=== PATIENT | female | born 1945 | race Caucasian/White ===

== ENCOUNTER → 2017-02-07 | Outpatient (CLI) | payer OTHER ==
[2014-10-31 16:30] VITALS: BP 117/65
[~2017-02-07] MED LIST: ASPI-482 PO; GABA-586 PO; HYDR12.58 PO; NAPR500T3 PO; OMEP40CA5 PO; SENN1TAB70 PO; SIMV20TA3 PO; black cohosh PO
== END | disposition home or self-care (01) ==
LOC: EKG 10:10
PROVIDERS: ATTEND Physician Assistant
DX: R00.1 Bradycardia, unspecified (principal); R42 Dizziness and giddiness
CPT/HCPCS: 93225

== ENCOUNTER → 2017-10-17 | Outpatient (CLI) | payer OTHER | END | disposition home or self-care (01) | LOC: KCIC 14:53 | DX: R91.8 Other nonspecific abnormal finding of lung field (principal); R06.02 Shortness of breath | CPT/HCPCS: 71046 ==

== ENCOUNTER → 2017-11-14 | Outpatient (CLI) | payer OTHER | END | disposition home or self-care (01) | LOC: KCIC US 14:37 | DX: I65.22 Occlusion and stenosis of left carotid artery (principal) | CPT/HCPCS: 93880 ==

== ENCOUNTER → 2017-11-23 | Outpatient (CLI) | payer OTHER ==
[2017-11-23 13:53] LABS: POTASSIUM 3.8 mmol/L (3.5-5.1)
== END | disposition home or self-care (01) ==
LOC: SPEC 13:36
DX: M62.81 Muscle weakness (generalized) (principal); M62.838 Other muscle spasm
CPT/HCPCS: 36415; 84132

== ENCOUNTER → 2018-04-04 | Outpatient (CLI) | payer OTHER ==
[2014-10-31 16:30] VITALS: BP 117/65
[~2018-04-04] MED LIST changes: +NAPR-514 PO; -NAPR500T3 PO
--- NOTE | 2018-04-04 17:23 | KCIC ---
EXAM: AP, lateral, lumbosacral spot and bilateral oblique views of the lumbar spine DATE: 04/04/2018 12:00 AM INDICATION: Low back pain after lifting boxes. Hip pain for 3 months COMPARISON: No Prior FINDINGS: Transitional lumbar anatomy with small ribs are seen at L1. There is 4 mm anterolisthesis of L4 on L5. Mild L4-5 intervertebral disc height loss. Otherwise intervertebral disc heights are grossly preserved. On the oblique views, no definite pars defects are seen. Advanced L4-5 and L5-S1 facet degenerative change. No evidence for acute fracture. Vertebral body height heights are preserved. IMPRESSION: 1. Transitional anatomy with small ribs at L1. 2. Anterolisthesis of L4 on L5 is likely degenerative. No definite pars defects are seen. Electronically signed by: Mio Haley MD (04/04/2018 5:19 PM) [facility]
== END | disposition home or self-care (01) ==
LOC: KCIC 08:08
PROVIDERS: ATTEND Family Medicine
DX: M54.5 Low back pain (principal); M25.559 Pain in unspecified hip; I10 Essential (primary) hypertension
CPT/HCPCS: 72110

== ENCOUNTER → 2019-02-20 | Outpatient (CLI) | payer OTHER ==
[2014-10-31 16:30] VITALS: BP 117/65
[~2019-02-20] MED LIST changes: -GABA-586 PO; +GABA300C18 PO
--- NOTE | 2019-02-20 11:16 | KCIC ---
KNEE RIGHT 3V 02/20/2019 12:00 AM INDICATION: Right anterior knee pain. Osteoarthrosis COMPARISON: None available. TECHNIQUE: 3 views the right knee are provided. FINDINGS: There is no acute fracture or dislocation. Bone mineralization is within normal limits. There is moderate medial femorotibial joint space narrowing with marginal osteophytosis. No significant knee joint effusion.. Regional soft tissues are within normal limits. There is no soft tissue gas or osseous erosion. IMPRESSION: No acute fracture or dislocation. Moderate medial femorotibial osteoarthrosis. Electronically signed by: Britney Charles MD (02/20/2019 11:12 AM) [id number]
--- NOTE | 2019-02-20 13:27 | KCIC ---
Bilateral digital screening mammograms: Reason for examination: Routine screening. Comparison is made to previous studies dated 06/16/2016 and 05/20/2015. Interpretation was made with the benefit of CAD. The skin and nipples show no abnormalities. No abnormal axillary lymph nodes are seen. The breast parenchyma shows scattered fibroglandular density. (Breast density: Category B.) There are no dominant masses, suspicious calcifications or architectural distortions. A few scattered benign calcifications are again seen. Impression: No evidence of malignancy. Recommend routine screening. BI-RADS Category 2: Benign. "Our facility is accredited by the [employer] Mammography Program." This patient's information has been entered into a reminder system for the patient to be notified with the results of her examination and a target date for the next mammogram. Electronically signed by: Nereyda Campbell MD (02/20/2019 1:24 PM) [id number]
--- NOTE | 2019-02-20 15:40 | KCIC ---
Indication: Postmenopausal screening for osteoporosis. Follow-up study. COMPARISON: May 20, 2015.. Bone Density: -BMD: (g/cm2) - AP Spine Total (L1-L4).......... 0.740. - Total left Hip................. 0.690. T-Score: - AP Spine Total (L1-L4)......... -2.8. - Total left Hip................. -2.1. Z-Score: - AP Spine Total (L1-L4).......... -0.4. - Total left Hip................. -0.3. World Health Organization criteria for BMD interpretation classify patients as Normal (T-score at or above -1.0), Osteopenic (T-score between -1.0 and -2.5), or Osteoporotic (T-score at or below -2.5). Impression: 1. AP Spine Total L1-L4--- osteoporosis. Since the prior study, there has been a decrease in the BMD of 18%. 2. Total left Hip--- osteopenia. Since the previous study, there has been a decrease in the BMD of 14% Electronically signed by: Artem García MD (02/20/2019 3:37 PM) [email or web address]
== END | disposition home or self-care (01) ==
LOC: KCIC DEXA 09:13
PROVIDERS: ATTEND Family Medicine
DX: Z12.31 Encounter for screening mammogram for malignant neoplasm of breast (principal); M17.11 Unilateral primary osteoarthritis, right knee; M81.8 Other osteoporosis without current pathological fracture; M85.88 Other specified disorders of bone density and structure, other site; N95.9 Unspecified menopausal and perimenopausal disorder
CPT/HCPCS: 73562; 77067; 77080

== ENCOUNTER → 2019-08-22 | Outpatient (CLI) | payer MEDICARE, OTHER ==
[2014-10-31 16:30] VITALS: BP 117/65
[~2019-08-22] MED LIST changes: +OMEP40CA45 PO; -OMEP40CA5 PO; +SIMV20TA18 PO; -SIMV20TA3 PO
--- NOTE | 2019-08-22 15:56 | RAD ---
Chest radiograph 08/22/2019 12:00 AM INDICATION: Cryptogenic organizing pneumonia COMPARISON: 10/17/2017 TECHNIQUE: Frontal and lateral views of the chest are provided. FINDINGS: The cardiomediastinal silhouette is within normal limits. There are no pleural effusions. There is no pulmonary vascular congestion. There is no pneumothorax. The lungs are clear. Mild chronic interstitial changes are present, likely secondary to scarring from remote infection. No significant osseous abnormality is identified. IMPRESSION: No acute cardiopulmonary process. Mild chronic interstitial changes reflect scarring. Electronically signed by: Britney Charles MD (08/22/2019 3:53 PM) [id number]
== END | disposition home or self-care (01) ==
LOC: RAD 15:14
PROVIDERS: ATTEND Internal Medicine Pulmonary Disease
DX: J84.116 Cryptogenic organizing pneumonia (principal); J98.4 Other disorders of lung
CPT/HCPCS: 71046

== ENCOUNTER → 2020-05-25 | Outpatient (CLI) | payer OTHER ==
[2014-10-31 16:30] VITALS: BP 117/65
--- NOTE | 2020-05-25 15:37 | KCIC ---
EXAM: CHEST PA LATERAL 05/25/2020 12:00 AM CLINICAL INDICATION: Chronic interstitial changes COMPARISON: Chest radiograph 08/22/2019 TECHNIQUE: PA and lateral views of the chest FINDINGS: The heart is normal in size. Lungs are normally expanded. No consolidation, pleural effusion, or pneumothorax. Pulmonary vascularity is normal. There is degenerative disc disease in the thoracic spine. IMPRESSION: No acute cardiopulmonary abnormality. Electronically signed by: Sherri Cotton MD (05/25/2020 3:34 PM) [id number]
== END | disposition home or self-care (01) ==
LOC: KCIC 13:12
PROVIDERS: ATTEND Internal Medicine Pulmonary Disease
DX: R91.8 Other nonspecific abnormal finding of lung field (principal); M51.34 Other intervertebral disc degeneration, thoracic region
CPT/HCPCS: 71046

== ENCOUNTER → 2020-05-25 | Outpatient (CLI) | payer OTHER ==
[2014-10-31 16:30] VITALS: BP 117/65
--- NOTE | 2020-05-25 17:11 | KCIC ---
EXAM: LUMBAR SPINE 2-3V 05/25/2020 12:00 AM CLINICAL INDICATION:Right-sided low back pain, right hip pain COMPARISON:Lumbar spine radiograph 04/04/2018 TECHNIQUE:3 views of lumbar spine FINDINGS:The bones appear demineralized. There is an unchanged T12 compression fracture with mild height loss. There is 4 mm anterolisthesis of L4 on L5, unchanged. Mild diffuse disc space narrowing. Severe facet arthrosis at L4-L5 and L5-S1. IMPRESSION:Unchanged mild degenerative disc disease and severe lower lumbar facet arthrosis. Electronically signed by: Sherri Cotton MD (05/25/2020 5:08 PM) [id number]
--- NOTE | 2020-05-26 08:48 | KCIC ---
Three-view left foot study Clinical indications: Left foot pain for 3 months with swelling and redness. FINDINGS: No acute fracture or dislocation or lytic process or periosteal reaction is seen. Plantar and posterior spurs of the calcaneus are seen. IMPRESSION: No acute osseous abnormality. Electronically signed by: Artem García MD (05/26/2020 8:45 AM) [id number]
== END | disposition home or self-care (01) ==
LOC: KCIC 13:07
PROVIDERS: ATTEND Family Medicine
DX: M77.32 Calcaneal spur, left foot (principal); R22.42 Localized swelling, mass and lump, left lower limb; M51.36 Other intervertebral disc degeneration, lumbar region; M48.061 Spinal stenosis, lumbar region without neurogenic claudication; M47.816 Spondylosis without myelopathy or radiculopathy, lumbar region; M43.16 Spondylolisthesis, lumbar region; M79.672 Pain in left foot
CPT/HCPCS: 72100; 73630

== ENCOUNTER → 2020-09-17 | Outpatient (CLI) | payer OTHER ==
[2014-10-31 16:30] VITALS: BP 117/65
--- NOTE | 2020-09-17 13:07 | RAD ---
EXAM: Bilateral lower extremity venous Doppler sonogram. HISTORY: Pain and swelling. TECHNIQUE: Hoyos scale and color Doppler sonographic evaluation of the bilateral lower extremity veins with spectral waveform analysis was performed. FINDINGS: There is normal color flow, normal compressibility and there are normal spectral waveforms in the common femoral, superficial femoral, popliteal, posterior tibial and greater saphenous veins. IMPRESSION: No Doppler evidence of lower extremity deep venous thrombosis. Electronically signed by: Arlin Melendez MD (09/17/2020 1:05 PM) [id number]
--- NOTE | 2020-09-17 13:10 | RAD ---
EXAM: Bilateral lower extremity arterial Doppler sonogram. HISTORY: Peripheral artery disease. Pain. TECHNIQUE: Hoyos scale and color Doppler sonographic imaging of the lower extremity arteries with spec tral analysis was performed. COMPARISON: None. FINDINGS: There are biphasic and triphasic waveforms throughout the lower extremity arteries. The per whitfield arteries are not seen. There are elevated peak systolic velocities within the right common femo ral artery and right proximal and mid superficial femoral artery, measuring 189 cm/s, 167 cm/s, and 1 65 cm/s. There are elevated peak systolic velocities within the proximal, mid and distal left superfi cial femoral artery, measuring 189 cm/s, 192 cm/s, and 128 cm/s. IMPRESSION: 1. Elevated peak systolic velocities within the left greater than right superficial femoral arteries and right common femoral artery, suggesting mild stenosis. 2. Nonvisualization of the bilateral peroneal arteries. Electronically signed by: Arlin Melendez MD (09/17/2020 1:07 PM) [id number]
== END ==
LOC: US 12:16
PROVIDERS: ATTEND Podiatrist Foot Surgery
DX: I82.492 Acute embolism and thrombosis of other specified deep vein of left lower extremity (principal)
CPT/HCPCS: 93925; 93970

== ENCOUNTER → 2021-06-28 | Outpatient (CLI) | payer OTHER ==
[2014-10-31 16:30] VITALS: BP 117/65
[~2021-06-28] MED LIST changes: -OMEP40CA45 PO; +OMEP40CA7 PO
--- NOTE | 2021-06-28 15:35 | RAD ---
MR#: [id number] Date of Study: 06/28/2021 Ordering Physician: MARIANNA ALTMAN, Referring Physician: MARIANNA ALTMAN, Tech: Emilia Donnelly RVT, CEFERINO APPROVED REPORT Patient Location: OUT-PATIENT Indications Claudication: Rest Pain: PAD Risk Factors Hypertension VELOCITY AND DOPPLER WAVEFORM ANALYSIS RIGHT cm/secWaveformSeverity LEFT cm/secWaveform Severity dCFA 216.0TriphasicdCFA 182.0Triphasic Prof Fem Art. 184.0TriphasicProf Fem Art. 128.0Triphasic Fem Art Prox. 215.0TriphasicFem Art Prox. 192.0Triphasic Fem Art Mid. 119.0BiphasicFem Art Mid. 190.0Triphasic Fem Art Dist. 171.0BiphasicFem Art Dist. 164.0Biphasic Pop Art(Fossa) 116.0BiphasicPop Art(AK) 137.0Biphasic [employer] Prox. 73.0BiphasicPTA Prox. 160.0Biphasic [employer] Dist. 131.0TriphasicPTA Dist. 164.0Biphasic Per Art Dist.63.0BiphasicPer Art Dist.141.0Biphasic ERLINDA Prox. 92.0BiphasicATA Prox. 84.0Biphasic DPA 155TriphasicDPA 114Biphasic Findings Spectral waveforms and color Doppler of the bilateral lower extremity arterial vessels demonstrates m ostly biphasic and triphasic waveforms. Although velocities are elevated throughout the lower extrem ity arterial course the no obvious focal high-grade stenosis is identified. Probable moderate small vessel disease at the level of the ankle. Critical Notification Critical Value: No <Conclusion> 1. No significant high-grade stenosis identified in the bilateral lower extremity arterial vessels Signed by : Keshav Saravia, Electronically Approved : 06/28/2021 15:35:24
== END ==
LOC: US 12:20
PROVIDERS: ATTEND Internal Medicine Cardiovascular Disease
DX: I73.9 Peripheral vascular disease, unspecified (principal)
CPT/HCPCS: 93925

== ENCOUNTER → 2021-11-22 | Outpatient (CLI) | payer OTHER ==
[2014-10-31 16:30] VITALS: BP 117/65
--- NOTE | 2021-11-22 14:19 | KCIC ---
EXAMINATION: XR CHEST 2V. HISTORY: 76 years Female Reason: VIRAL URI, FATIGUE, WHEEZING, SX FOR 1 WEEK, -COVID / Spl. Instruc tions: / History: . . COMPARISON: May. Findings: There is interstitial thickening with no focal airspace consolidation. The heart size is en larged. There is no effusion or pneumothorax. The mediastinum and charli appear unremarkable. Impression: Cardiomegaly with interstitial thickening likely secondary to vascular congestion. Atypic al infection could be considered. Electronically signed by: Marcelino Mora MD (11/22/2021 2:17 PM) [id number]
== END ==
LOC: KCIC 11:21
PROVIDERS: ATTEND Physician Assistant Medical
DX: I51.7 Cardiomegaly (principal); J06.9 Acute upper respiratory infection, unspecified
CPT/HCPCS: 71046